=== PATIENT | female | born 1980 ===

== ENCOUNTER 2018-01-13 21:28 | Emergency (ER) | payer SELFPAY ==
[2018-01-13 21:41] VITALS: RESP 16
--- NOTE | 2018-01-13 22:04 | EDPHY ---
H & P Time Seen by Provider: 01/13/18 21:56 HPI/ROS: CHIEF COMPLAINT: Nose injury HISTORY OF PRESENT ILLNESS: Just prior to arrival patient was putting up a shelf when it fell and hit her in the face knocking her into the wall. She complains of some left posterior thoracic back pain without weakness or numbness in extremities. She has some nose pain which associated with a little bit of nose bleeding which is resolved. No headache or visual changes, no neck pain, no loss of consciousness, no weakness or numbness in extremities. REVIEW OF SYSTEMS: As in HPI; no trouble breathing. PAST MEDICAL HISTORY: Depression on Prozac General Appearance: Alert and conversant, cooperative. Normal and fluent speech. Pupils equal reactive extraocular motion intact and no facial bony tenderness except for the nasal bridge. No cervical thoracic or lumbar midline spine tenderness. Very slight tenderness to palpation at the bottom part of the left scapular area on the left posterior chest. Breath sounds equal, no crepitus, no respiratory distress. No active nasal bleeding and no septal hematoma. Normal pharynx. Emergency Department course/MDM: Patient has tenderness the nasal bridge with very slight right-sided nasal deviation. I warned the patient she probably has a nasal fracture and will need to follow up with ENT specialist in 2-3 days for evaluation of whether it needs to be reset. Likely left posterior chest wall contusion, I think spinal injury or fracture, pneumothorax or hemothorax is unlikely. Smoking Status: Never smoked Constitutional: Initial Vital Signs Temperature (C) 37 C 01/13/18 21:37 Heart Rate 100 01/13/18 21:37 Respiratory Rate 16 01/13/18 21:37 Blood Pressure 162/92 H 01/13/18 21:37 O2 Sat (%) 92 01/13/18 21:37 O2 Delivery Mode Room Air Allergies/Adverse Reactions: No Known Allergies Allergy (Verified 01/13/18 21:37) Home Medications: Medication Instructions Recorded Prozac 10 MG (*) 01/13/18 MDM/Departure - Depart Disposition: Home, Routine, Self-Care Clinical Impression: Contusion of back Qualifiers: Encounter type: initial encounter Laterality: left Qualified Code(s): S20.222A - Contusion of left back wall of thorax, initial encounter Nasal fracture Qualifiers: Encounter type: initial encounter Fracture type: closed Qualified Code(s): S02.2XXA - Fracture of nasal bones, initial encounter for closed fracture Condition: Good Instructions: Nasal Fracture (ED), Contusion in Adults (ED) Referrals: Tito Kruse MD [Medical Doctor] - 2-3 days, call for appt. (followup with ENT in 2-3 days, they will evaluate your nose if you have trouble breathing or it looks deformed.)
[2018-01-13 22:09] VITALS: BP 142/82; PULSE 90; TEMP 99.1; O2SAT 97
== END 2018-01-13 22:12 | disposition home or self-care (01) ==
LOC: CED 21:28
DX: S02.2XXA Fracture of nasal bones, initial encounter for closed fracture (principal); S20.222A Contusion of left back wall of thorax, initial encounter; W18.09XA Striking against other object with subsequent fall, initial encounter